=== PATIENT | male | born 1960 | race Caucasian/White ===

== ENCOUNTER 2016-12-07 19:25 | Emergency (ER) | payer MEDICAID ==
[~2016-12-07] VITALS: Ht 175.3 cm; Wt 73.0 kg
[2016-12-07] MEDS ORDERED: SODIUM CHLORIDE 0.9% 1,000ML IVBOLUS ONE (20:00)
[2016-12-07] MEDS ORDERED: LORazepam 1MG TABLET PO ONE (20:00)
[2016-12-07] MEDS ORDERED: SODIUM CHLORIDE FLUSH 10ML SYR IVF ONE (20:00)
[2016-12-07] MEDS ORDERED: ALBUTEROL/IPRATROPIUM 2.5MG/0.5MG, 3 ML NPPB ONE (20:00)
[2016-12-07] MEDS ORDERED: LORazepam 1MG TABLET ONE (20:19)
[2016-12-07] MEDS ORDERED: ALBUTEROL/IPRATROPIUM 2.5MG/0.5MG, 3 ML ONE (20:22)
[2016-12-07 20:31] LABS: BLOOD UREA NITROGEN 6 mg/dL (7-18)
[2016-12-07 20:38] LABS: ACETAMINOPHEN < 2 mcg/mL (10-30); IS PT STATUS REG ER OR PRE ER? YES
[2016-12-07 22:42] VITALS: BP 106/64
== END 2016-12-07 23:10 | disposition home or self-care (01) ==
LOC: ED 23:04
DX: F10.229 Alcohol dependence with intoxication, unspecified (principal); J18.9 Pneumonia, unspecified organism; R09.02 Hypoxemia; J44.9 Chronic obstructive pulmonary disease, unspecified
CPT/HCPCS: 36415; 71010; 80048; 80307; 80329; 81003; 82040; 84484; 85025; 93005; 94640; 96360; 96361; 99285; J7030; J7620; G0480

== ENCOUNTER 2016-12-20 18:31 | Emergency (ER) | payer MEDICAID ==
[~2016-12-20] VITALS: Ht 170.2 cm; Wt 68.8 kg
[2016-12-20 18:33] VITALS: BP 113/76
== END 2016-12-20 19:23 | disposition home or self-care (01) ==
LOC: ED 19:22
DX: Z76.0 Encounter for issue of repeat prescription (principal); J18.9 Pneumonia, unspecified organism; J44.9 Chronic obstructive pulmonary disease, unspecified
CPT/HCPCS: 99283

== ENCOUNTER 2017-06-01 16:40 | Emergency (ER) | payer MEDICAID ==
[~2017-06-01] VITALS: Ht 171.4 cm; Wt 61.8 kg
[2017-06-01 16:55] VITALS: BP 115/72
[2017-06-01] MEDS ORDERED: BACITRACIN ZINC OINT 500U/GM, 0.9 GM ONE (17:32)
== END 2017-06-01 17:40 | disposition home or self-care (01) ==
LOC: ED 17:15
DX: S01.01XD Laceration without foreign body of scalp, subsequent encounter (principal); J44.9 Chronic obstructive pulmonary disease, unspecified
CPT/HCPCS: 99282

== ENCOUNTER 2018-01-07 06:37 | Inpatient (IN) | payer MEDICAID, OTHER ==
[~2018-01-07] VITALS: Ht 177.8 cm; Wt 74.5 kg
[2018-01-07] MEDS ORDERED: SODIUM CHLORIDE 0.9% 1,000 ML IV ONE (06:46)
[2018-01-07] MEDS ORDERED: NALOXONE 1 MG/ML, 2ML ONE (06:51)
[2018-01-07] MEDS ORDERED: NALOXONE 1 MG/ML, 2ML IVPush ONE (07:00)
[2018-01-07] MEDS ORDERED: SODIUM CHLORIDE 0.9% 1,000ML IVBOLUS ONE ×3 (07:00→17:00)
[2018-01-07] MEDS ORDERED: SODIUM CHLORIDE FLUSH 10ML SYR IVF ONE (07:00)
[2018-01-07 07:06] LABS: BASOPHILS # (AUTO) 0.01 x10^3/uL (0-0.1); BASOPHILS % (AUTO) 0 % (0-1); EOSINOPHILS # (AUTO) 0.09 x10^3/uL (0-0.4); EOSINOPHILS % (AUTO) 1 % (1-7); LYMPHOCYTES # (AUTO) 0.46 x10^3/uL (1-3.4); LYMPHOCYTES % (AUTO) 6 % (22-44); MD NO; MEAN CORPUSCULAR HGB CONC 34.2 g/dL (33.2-36.2); MEAN CORPUSCULAR VOLUME 93.6 fL (81-97); MEAN PLATELET VOLUME 8.3 fL (7.4-10.4); MONOCYTES # (AUTO) 0.59 x10^3/uL (0.2-0.8); MONOCYTES % (AUTO) 8 % (2-9); NEUTROPHILS # (AUTO) 6.14 x10^3/uL (1.8-6.8); NEUTROPHILS % (AUTO) 84 % (42-75); PLATELET COUNT 205 x10^3/uL (130-400); RED CELL DISTRIBUTION WIDTH 13.2 % (9.4-14.8)
[2018-01-07 07:19] LABS: ALANINE AMINOTRANSFERASE 95 U/L (12-78); ALBUMIN 3.8 g/dL (3.4-5.0); ANION GAP 1 mmol/L (5-15); CALCIUM 7.7 mg/dL (8.5-10.1); CHLORIDE 104 mmol/L (98-107)
[2018-01-07 07:21] LABS: ALKALINE PHOSPHATASE 78 U/L (45-117); BILIRUBIN,TOTAL 0.1 mg/dL (0.2-1.0); TOTAL PROTEIN 7.5 g/dL (6.4-8.2)
[2018-01-07 07:35] LABS: ACETAMINOPHEN < 2 mcg/mL (10-30)
[2018-01-07] MEDS ORDERED: FILTER 0.22 MICRON IV ONE (10:00)
[2018-01-07] MEDS ORDERED: PHENYTOIN SODIUM 1,000 MG in SODIUM CHLORIDE 0.9% 100 ML IV ONE (10:00)
[2018-01-07] MEDS ORDERED: LORazepam 2 MG/ML, 1ML ONE (10:17)
[2018-01-07] MEDS ORDERED: LORazepam 2 MG/ML, 1ML IVPush ONE (10:30)
[2018-01-07 11:01] VITALS: BP 106/66
[2018-01-07 11:09] LABS: AMPHETAMINE SCREEN, URINE Negative (Negative); BARBITURATE SCREEN, URINE Negative (Negative); BENZODIAZEPINE SCREEN, URINE Negative (Negative); CANNABINOID SCREEN, URINE Negative (Negative); COCAINE SCREEN, URINE Negative (Negative); METHADONE SCREEN, URINE Negative (Negative); OPIATE SCREEN, URINE Negative (Negative)
[2018-01-07] MEDS ORDERED: LORazepam 2 MG/ML, 1ML IVPush PRN (12:00)
[2018-01-07] MEDS ORDERED: D5%-0.45% NACL 1,000 ML IV SCH (12:00)
[2018-01-07 12:24] LABS: O2 FLOW 6 L/min
[2018-01-07 12:41] VITALS: BP 116/71
[2018-01-07] MEDS: ENOXAPARIN 40 MG/0.4 ML SQ SCH (12:42)
[2018-01-07 12:47] LABS: THYROID STIMULATING HORMONE 2.22 mIU/L (0.358-3.740)
[2018-01-07] MEDS ORDERED: PROPOFOL 100 ML IV PRN (14:51)
[2018-01-07] MEDS ORDERED: DEXTROSE 4 GM TAB.CHEW PO PRN (15:00)
[2018-01-07] MEDS ORDERED: DEXTROSE 50%, 50ML SYRINGE IVPush PRN (15:00)
[2018-01-07] MEDS ORDERED: PROPOFOL 10 MG/ML, 100ML IV ONE (15:00)
[2018-01-07] MEDS ORDERED: LIDOCAINE-MPF 1%, 2ML ENDO PRN (15:00)
[2018-01-07] MEDS ORDERED: SUCCINYLCHOLINE 20 MG/ML, 10ML ONE (15:00)
[2018-01-07] MEDS ORDERED: GLUCAGON 1 MG IM PRN (15:00)
[2018-01-07] MEDS ORDERED: PHARMACY MAY ADJ FOR RENAL FX MC SCH (15:00)
[2018-01-07] MEDS ORDERED: BISACODYL 10 MG SUPP PR PRN (15:00)
[2018-01-07] MEDS ORDERED: LACTULOSE 20 GM/30 ML UDC NG PRN (15:00)
[2018-01-07] MEDS ORDERED: SENNA/DOCUSATE TABLET NG PRN (15:00)
[2018-01-07] MEDS ORDERED: SENNOSIDES 8.8 MG/5 ML ORAL SOL NG PRN (15:00)
[2018-01-07 15:28] LABS: GLUCOSE, CSF 105 mg/dL (40-80); TOTAL PROTEIN,CSF 44 mg/dL (15-45)
[2018-01-07 16:40] LABS: MICROSCOPIC NOT IND
[2018-01-07 16:48] LABS: CULTURE INDICATED? NO
[2018-01-07] MEDS: INSULIN LISPRO 100 UNITS/ML, PEN SQ-INSULIN SCH ×2 (17:31→21:00)
[2018-01-07] MEDS: FAMOTIDINE 20 MG/2 ML IV SCH (17:32)
[2018-01-07] MEDS: PIPERACILLIN/TAZO/PMX 3.375GM 50 ML IV SCH ×2 (17:32→23:10)
[2018-01-07] MEDS: ALBUTEROL/IPRATROPIUM 2.5MG/0.5MG, 3 ML INLINE SCH ×2 (18:45→22:44)
[2018-01-07] MEDS: SODIUM CHLORIDE FLUSH 10ML SYR IVF SCH (21:00)
[2018-01-07] MEDS: SODIUM CHLORIDE 0.9% 1,000 ML IV SCH (21:18)
[2018-01-07] MEDS: PROPOFOL 100 ML IV PRN (22:04)
[2018-01-07] MEDS: FENTANYL PF 100 MCG/2ML IVPush PRN (23:09)
[2018-01-08] MEDS: ALBUTEROL/IPRATROPIUM 2.5MG/0.5MG, 3 ML INLINE SCH ×3 (02:38→09:00)
[2018-01-08] MEDS: FAMOTIDINE 20 MG/2 ML IV SCH ×2 (03:16→14:07)
[2018-01-08] MEDS: FENTANYL PF 100 MCG/2ML IVPush PRN (03:16)
[2018-01-08] MEDS: PROPOFOL 100 ML IV PRN ×2 (03:46→08:29)
[2018-01-08 04:39] LABS: ANION GAP 9 mmol/L (5-15); CALCIUM 8.1 mg/dL (8.5-10.1); CHLORIDE 106 mmol/L (98-107); CREATININE 0.76 mg/dL (0.7-1.3)
[2018-01-08 04:43] LABS: ALANINE AMINOTRANSFERASE 70 U/L (12-78); ALKALINE PHOSPHATASE 51 U/L (45-117); BILIRUBIN,TOTAL 0.6 mg/dL (0.2-1.0); TOTAL PROTEIN 6.1 g/dL (6.4-8.2)
[2018-01-08 05:00] VITALS: BP 110/68
[2018-01-08] MEDS: SODIUM CHLORIDE 0.9% 1,000 ML IV SCH ×3 (05:36→17:58)
[2018-01-08 05:43] LABS: BASOPHILS # (AUTO) 0.02 x10^3/uL (0-0.1); BASOPHILS % (AUTO) 0 % (0-1); EOSINOPHILS # (AUTO) 0.01 x10^3/uL (0-0.4); EOSINOPHILS % (AUTO) 0 % (1-7); LYMPHOCYTES # (AUTO) 1.47 x10^3/uL (1-3.4); LYMPHOCYTES % (AUTO) 14 % (22-44); MD SCAN; MEAN CORPUSCULAR HEMOGLOBIN 31.2 pg (27.5-34.5); MEAN CORPUSCULAR HGB CONC 33.7 g/dL (33.2-36.2); MEAN CORPUSCULAR VOLUME 92.8 fL (81-97); MEAN PLATELET VOLUME 9.1 fL (7.4-10.4); MONOCYTES # (AUTO) 1.07 x10^3/uL (0.2-0.8); MONOCYTES % (AUTO) 10 % (2-9); NEUTROPHILS # (AUTO) 8.03 x10^3/uL (1.8-6.8); NEUTROPHILS % (AUTO) 76 % (42-75); PLATELET COUNT 158 x10^3/uL (130-400); RED BLOOD COUNT 3.85 x10^6/uL (4.38-5.82); RED CELL DISTRIBUTION WIDTH 13.3 % (9.4-14.8)
[2018-01-08] MEDS: INSULIN LISPRO 100 UNITS/ML, PEN SQ-INSULIN SCH ×4 (07:00→21:00)
[2018-01-08] MEDS: PIPERACILLIN/TAZO/PMX 3.375GM 50 ML IV SCH ×3 (07:05→18:00)
[2018-01-08] MEDS ORDERED: MAGNESIUM SULFATE PMX 4GM/100M 100 ML IV ONE (08:00)
[2018-01-08] MEDS: CYANOCOBALAMIN 1,000 MCG TABLET PO SCH (10:49)
[2018-01-08] MEDS: SODIUM CHLORIDE FLUSH 10ML SYR IVF SCH ×2 (10:50→21:20)
[2018-01-08] MEDS ORDERED: LEVETIRACETAM 100 MG/ML, 5ML IV SCH (12:00)
[2018-01-08] MEDS: ENOXAPARIN 40 MG/0.4 ML SQ SCH (12:24)
[2018-01-08] MEDS: LEVETIRACETAM 750 MG in SODIUM CHLORIDE 0.9% 100 ML IV SCH (12:24)
[2018-01-08] MEDS ORDERED: PROPOFOL 100 ML IV PRN (14:51)
[2018-01-09] MEDS: LEVETIRACETAM 750 MG in SODIUM CHLORIDE 0.9% 100 ML IV SCH (00:19)
[2018-01-09] MEDS: PIPERACILLIN/TAZO/PMX 3.375GM 50 ML IV SCH ×2 (01:18→07:51)
[2018-01-09] MEDS: SODIUM CHLORIDE 0.9% 1,000 ML IV SCH (03:20)
[2018-01-09] MEDS: FAMOTIDINE 20 MG/2 ML IV SCH (03:20)
[2018-01-09 04:39] LABS: BASOPHILS # (AUTO) 0.03 x10^3/uL (0-0.1); BASOPHILS % (AUTO) 1 % (0-1); EOSINOPHILS # (AUTO) 0.07 x10^3/uL (0-0.4); EOSINOPHILS % (AUTO) 1 % (1-7); LYMPHOCYTES # (AUTO) 1.67 x10^3/uL (1-3.4); LYMPHOCYTES % (AUTO) 24 % (22-44); MD NO; MEAN CORPUSCULAR HEMOGLOBIN 31.9 pg (27.5-34.5); MEAN CORPUSCULAR HGB CONC 34.1 g/dL (33.2-36.2); MEAN CORPUSCULAR VOLUME 93.6 fL (81-97); MEAN PLATELET VOLUME 8.8 fL (7.4-10.4); MONOCYTES # (AUTO) 0.87 x10^3/uL (0.2-0.8); MONOCYTES % (AUTO) 13 % (2-9); NEUTROPHILS # (AUTO) 4.27 x10^3/uL (1.8-6.8); NEUTROPHILS % (AUTO) 62 % (42-75); PLATELET COUNT 158 x10^3/uL (130-400); RED BLOOD COUNT 3.78 x10^6/uL (4.38-5.82); RED CELL DISTRIBUTION WIDTH 13.2 % (9.4-14.8)
[2018-01-09 04:49] LABS: ANION GAP 6 mmol/L (5-15); CALCIUM 7.8 mg/dL (8.5-10.1); CHLORIDE 106 mmol/L (98-107); CREATININE 0.46 mg/dL (0.7-1.3)
[2018-01-09 05:00] VITALS: BP 110/65
[2018-01-09] MEDS: INSULIN LISPRO 100 UNITS/ML, PEN SQ-INSULIN SCH (07:00)
[2018-01-09] MEDS: SODIUM CHLORIDE FLUSH 10ML SYR IVF SCH ×2 (08:08→22:00)
[2018-01-09] MEDS: CYANOCOBALAMIN 1,000 MCG TABLET PO SCH (08:08)
[2018-01-09] MEDS: DOXYCYCLINE 100 MG in DEXTROSE 5% 250 ML IV SCH ×2 (09:17→22:00)
[2018-01-09] MEDS ORDERED: CEFTRIAXONE PMX 2GM/50ML 50 ML IVPB SCH (10:30)
[2018-01-09] MEDS: ENOXAPARIN 40 MG/0.4 ML SQ SCH (11:20)
[2018-01-09] MEDS ORDERED: GADOBUTROL 7.5 MMOL/7.5 ML PFS ONE (12:45)
[2018-01-09 14:06] VITALS: BP 119/69
[2018-01-09 21:30] VITALS: BP 127/78
[2018-01-09] MEDS: LEVETIRACETAM 500 MG TABLET PO SCH (22:00)
[2018-01-10 04:56] LABS: BASOPHILS # (AUTO) 0.05 x10^3/uL (0-0.1); BASOPHILS % (AUTO) 1 % (0-1); EOSINOPHILS % (AUTO) 2 % (1-7); LYMPHOCYTES # (AUTO) 1.68 x10^3/uL (1-3.4); LYMPHOCYTES % (AUTO) 36 % (22-44); MD NO; MEAN CORPUSCULAR HEMOGLOBIN 32.1 pg (27.5-34.5); MEAN CORPUSCULAR HGB CONC 34.5 g/dL (33.2-36.2); MEAN CORPUSCULAR VOLUME 93.1 fL (81-97); MEAN PLATELET VOLUME 8.5 fL (7.4-10.4); MONOCYTES # (AUTO) 0.76 x10^3/uL (0.2-0.8); MONOCYTES % (AUTO) 16 % (2-9); NEUTROPHILS # (AUTO) 2.04 x10^3/uL (1.8-6.8); NEUTROPHILS % (AUTO) 44 % (42-75); PLATELET COUNT 195 x10^3/uL (130-400); RED BLOOD COUNT 4.22 x10^6/uL (4.38-5.82); RED CELL DISTRIBUTION WIDTH 13.1 % (9.4-14.8)
[2018-01-10 05:10] LABS: ANION GAP 8 mmol/L (5-15); CALCIUM 8.7 mg/dL (8.5-10.1); CHLORIDE 103 mmol/L (98-107); CREATININE 0.44 mg/dL (0.7-1.3)
[2018-01-10 05:33] VITALS: BP 109/73
[2018-01-10 07:13] VITALS: BP 117/74
[2018-01-10] MEDS: SODIUM CHLORIDE FLUSH 10ML SYR IVF SCH ×2 (09:19→21:28)
[2018-01-10] MEDS: DOXYCYCLINE 100 MG in DEXTROSE 5% 250 ML IV SCH ×2 (09:19→21:29)
[2018-01-10] MEDS: CYANOCOBALAMIN 1,000 MCG TABLET PO SCH (09:19)
[2018-01-10] MEDS: LEVETIRACETAM 500 MG TABLET PO SCH ×2 (09:19→21:28)
[2018-01-10] MEDS: ASPIRIN 81 MG TABLET EC PO SCH (09:19)
[2018-01-10 10:00] VITALS: BP 122/77
[2018-01-10] MEDS ORDERED: OMNIPAQUE 350 MG/ML, 150 ML BOTTLE ONE (10:07)
[2018-01-10] MEDS: ENOXAPARIN 40 MG/0.4 ML SQ SCH (12:21)
[2018-01-10 13:40] VITALS: BP 115/71
[2018-01-10 15:49] LABS: LDL/HDL RATIO 0.8 (0.5-3.0)
[2018-01-10 19:40] VITALS: BP 114/72
[2018-01-10] MEDS ORDERED: ATORVASTATIN 40 MG TABLET PO SCH (21:00)
[2018-01-11 01:49] VITALS: BP 133/76
[2018-01-11 05:25] LABS: BASOPHILS # (AUTO) 0.01 x10^3/uL (0-0.1); BASOPHILS % (AUTO) 0 % (0-1); EOSINOPHILS # (AUTO) 0.13 x10^3/uL (0-0.4); EOSINOPHILS % (AUTO) 3 % (1-7); LYMPHOCYTES # (AUTO) 1.78 x10^3/uL (1-3.4); LYMPHOCYTES % (AUTO) 39 % (22-44); MD NO; MEAN CORPUSCULAR HEMOGLOBIN 32.4 pg (27.5-34.5); MEAN CORPUSCULAR HGB CONC 34.5 g/dL (33.2-36.2); MEAN CORPUSCULAR VOLUME 93.8 fL (81-97); MEAN PLATELET VOLUME 8.5 fL (7.4-10.4); MONOCYTES # (AUTO) 0.76 x10^3/uL (0.2-0.8); MONOCYTES % (AUTO) 17 % (2-9); NEUTROPHILS # (AUTO) 1.86 x10^3/uL (1.8-6.8); NEUTROPHILS % (AUTO) 41 % (42-75); PLATELET COUNT 203 x10^3/uL (130-400); RED BLOOD COUNT 4.25 x10^6/uL (4.38-5.82); RED CELL DISTRIBUTION WIDTH 13.4 % (9.4-14.8)
[2018-01-11] MEDS: ASPIRIN 81 MG TABLET EC PO SCH (05:25)
[2018-01-11 06:47] LABS: ALANINE AMINOTRANSFERASE 76 U/L (12-78); ALKALINE PHOSPHATASE 56 U/L (45-117); ANION GAP 10 mmol/L (5-15); BILIRUBIN,TOTAL 0.4 mg/dL (0.2-1.0); CALCIUM 8.7 mg/dL (8.5-10.1); CHLORIDE 104 mmol/L (98-107); CREATININE 0.55 mg/dL (0.7-1.3); TOTAL PROTEIN 6.6 g/dL (6.4-8.2)
[2018-01-11 07:25] VITALS: BP 125/72
[2018-01-11] MEDS: LEVETIRACETAM 500 MG TABLET PO SCH (08:45)
[2018-01-11] MEDS: CYANOCOBALAMIN 1,000 MCG TABLET PO SCH (08:45)
[2018-01-11] MEDS: SODIUM CHLORIDE FLUSH 10ML SYR IVF SCH (08:45)
[2018-01-11] MEDS: DOXYCYCLINE 100 MG in DEXTROSE 5% 250 ML IV SCH (09:37)
[2018-01-11] MEDS: ENOXAPARIN 40 MG/0.4 ML SQ SCH (12:41)
[2018-01-11 13:39] VITALS: BP 105/64
[2018-01-11] MEDS ORDERED: MAGNESIUM SULFATE PMX 2GM/50ML 50 ML IV ONE (15:00)
[2018-01-11] MEDS ORDERED: ASPI-621 PO (15:03)
[2018-01-11] MEDS ORDERED: DOXY100T PO (15:03)
[2018-01-11] MEDS ORDERED: CYAN10005 PO (15:03)
[2018-01-11] MEDS ORDERED: ATOR40TA78 PO (15:03)
[2018-01-11] MEDS ORDERED: LEVE500T53 PO (15:11)
== END 2018-01-11 18:25 | disposition home or self-care (01) | DRG 166 ==
LOC: ED 08:02 → EDIP 08:42 → 4WST 10:45 → CCU 14:03 → 3NE 01-09 12:59 → 4EST 01-10 09:58
PROVIDERS: ADMIT Hospitalist; ATTEND Hospitalist
PROC: 0T9B70Z Drainage of Bladder with Drainage Device, Via Natural or Artificial Opening (ICD-10-PCS; principal; 2018-01-07)
PROC: 0B9F8ZX Drainage of Right Lower Lung Lobe, Via Natural or Artificial Opening Endoscopic, Diagnostic (ICD-10-PCS; 2018-01-07)
PROC: 5A1945Z Respiratory Ventilation, 24-96 Consecutive Hours (ICD-10-PCS; 2018-01-07)
PROC: 009U3ZX Drainage of Spinal Canal, Percutaneous Approach, Diagnostic (ICD-10-PCS; 2018-01-07)
PROC: 0BH17EZ Insertion of Endotracheal Airway into Trachea, Via Natural or Artificial Opening (ICD-10-PCS; 2018-01-07)
DX: J15.4 Pneumonia due to other streptococci (principal); J96.00 Acute respiratory failure, unspecified whether with hypoxia or hypercapnia; I63.9 Cerebral infarction, unspecified; Z99.11 Dependence on respirator [ventilator] status; E72.20 Disorder of urea cycle metabolism, unspecified; E83.42 Hypomagnesemia; I08.1 Rheumatic disorders of both mitral and tricuspid valves; E87.2 Acidosis; E87.1 Hypo-osmolality and hyponatremia; J44.0 Chronic obstructive pulmonary disease with (acute) lower respiratory infection; G40.201 Localization-related (focal) (partial) symptomatic epilepsy and epileptic syndromes with complex partial seizures, not intractable, with status epilepticus; I50.9 Heart failure, unspecified; G93.89 Other specified disorders of brain; B19.20 Unspecified viral hepatitis C without hepatic coma; E53.8 Deficiency of other specified B group vitamins; F17.200 Nicotine dependence, unspecified, uncomplicated; R32 Unspecified urinary incontinence; S01.512A Laceration without foreign body of oral cavity, initial encounter; X58.XXXA Exposure to other specified factors, initial encounter; R40.2430 Glasgow coma scale score 3-8, unspecified time; Y93.89 Activity, other specified; Y92.89 Other specified places as the place of occurrence of the external cause; Z79.82 Long term (current) use of aspirin; Z79.899 Other long term (current) drug therapy; Z88.1 Allergy status to other antibiotic agents
CPT/HCPCS: 0042T; 31624; 36415; 36600; 70450; 70498; 70553; 71045; 80048; 80053; 80061; 80074; 80177; 80307; 80329; 81003; 82140; 82607; 82746; 82803; 82945; 82962; 83735; 84100; 84157; 84443; 84478; 85025; 86592; 87070; 87081; 87102; 87116; 87184; 87205; 87206; 87521; 87529; 87802; 87806; 87899; 88108; 88112; 88312; 89051; 93005; 93306; 93880; 94002; 94003; 94640; 95816; 95819; 96361; 96374; 96375; A9585; J1165; J1650; J1953; J2543; J2704; J3010; J7060; J7620; Q9967; G0475; G0480; J0330; J1815; J2060; J2310; J3475; J7030; S0028

== ENCOUNTER 2019-03-27 15:05 | Emergency (ER) | payer MEDICAID, OTHER ==
[~2019-03-27] VITALS: Ht 172.7 cm; Wt 65.0 kg
[2019-03-27 16:15] VITALS: BP 116/84
== END 2019-03-27 17:15 | disposition home or self-care (01) ==
LOC: ED 17:09
DX: G40.419 Other generalized epilepsy and epileptic syndromes, intractable, without status epilepticus (principal); F10.121 Alcohol abuse with intoxication delirium; Y90.0 Blood alcohol level of less than 20 mg/100 ml; J44.9 Chronic obstructive pulmonary disease, unspecified; F31.9 Bipolar disorder, unspecified
CPT/HCPCS: 36415; 80048; 80307; 82040; 83735; 85025; 99283

== ENCOUNTER 2019-04-06 22:50 | Emergency (ER) | payer MEDICAID, OTHER ==
[~2019-04-06] VITALS: Ht 180.3 cm; Wt 80.0 kg
[~2019-04-06 22:50] MED LIST: ASPI81TA45 PO; ATOR40TA78 PO; CYAN-27 PO; DOXY100T PO; LEVE500T53 PO
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
--- NOTE | 2019-04-07 01:00 | NUR ---
Pt resting on gureny, respirations even and unlabored, placed on 2 liters via NC for apnea while asleep, all other vitals stable. Pending results.
--- NOTE | 2019-04-07 02:15 | NUR ---
Pt resting on gurney, respirations even and unlabored, vitals stable, medically cleared pending ambulation/ sobriety.
[2019-04-07 04:39] VITALS: BP 116/66
--- NOTE | 2019-04-07 04:55 | NUR ---
Pt stable for discahrge to home, vitals stable, speech is clear, follows commands, ambulates w/ steady gait. Pt provided education, verbalizes understanding, ambulates w/ personal belongings to front lobby, taxi voucher provided.
== END 2019-04-07 04:57 | disposition home or self-care (01) ==
LOC: MERGE 23:46 → ED 23:46
DX: S06.0X9A Concussion with loss of consciousness of unspecified duration, initial encounter (principal); S00.81XA Abrasion of other part of head, initial encounter; S00.31XA Abrasion of nose, initial encounter; J20.8 Acute bronchitis due to other specified organisms; F10.220 Alcohol dependence with intoxication, uncomplicated; Y90.9 Presence of alcohol in blood, level not specified; W01.0XXA Fall on same level from slipping, tripping and stumbling without subsequent striking against object, initial encounter; Y93.89 Activity, other specified; Y92.89 Other specified places as the place of occurrence of the external cause; Y99.8 Other external cause status
CPT/HCPCS: 70450; 70486; 71045; 72125; 99284

== ENCOUNTER 2019-06-14 13:54 | Emergency (ER) | payer MEDICAID, OTHER ==
[~2019-06-14] VITALS: Ht 170.2 cm; Wt 70.0 kg
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
[2019-06-14 14:40] LABS: BASOPHILS # (AUTO) 0.04 x10^3/uL (0-0.1); BASOPHILS % (AUTO) 1 % (0-1); EOSINOPHILS # (AUTO) 0.02 x10^3/uL (0-0.4); EOSINOPHILS % (AUTO) 1 % (1-7); LYMPHOCYTES % (AUTO) 36 % (22-44); MD NO; MEAN CORPUSCULAR HEMOGLOBIN 32.8 pg (27.5-34.5); MEAN CORPUSCULAR VOLUME 99.4 fL (81-97); MEAN PLATELET VOLUME 7.8 fL (7.4-10.4); MONOCYTES # (AUTO) 0.44 x10^3/uL (0.2-0.8); MONOCYTES % (AUTO) 14 % (2-9); NEUTROPHILS # (AUTO) 1.43 x10^3/uL (1.8-6.8); NEUTROPHILS % (AUTO) 47 % (42-75); PLATELET COUNT 204 x10^3/uL (130-400); RED BLOOD COUNT 4.85 x10^6/uL (4.38-5.82); RED CELL DISTRIBUTION WIDTH 14.8 % (9.4-14.8)
[2019-06-14 14:48] LABS: ALBUMIN 2.9 g/dL (3.4-5.0); ANION GAP 5 mmol/L (5-15); CHLORIDE 104 mmol/L (98-107); CREATININE 0.51 mg/dL (0.7-1.3)
[2019-06-14 16:01] VITALS: BP 106/76
== END 2019-06-14 16:06 | disposition home or self-care (01) ==
LOC: ED 16:00
DX: J20.8 Acute bronchitis due to other specified organisms (principal)
CPT/HCPCS: 36415; 71045; 80048; 82040; 85025; 93005; 99284

== ENCOUNTER 2019-06-26 11:18 | Emergency (ER) | payer MEDICAID ==
[~2019-06-26] VITALS: Ht 177.8 cm; Wt 88.0 kg
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
[2019-06-26] MEDS ORDERED: NEOSPORIN OINT. PKT 1 PACKET ONE (11:50)
[2019-06-26] MEDS ORDERED: THIAMINE 100 MG/ML, 2ML IM ONE (12:00)
--- NOTE | 2019-06-26 12:05 | NUR ---
HR dropped to 45 while sleeping. MD aware. No further orders at this time.
[2019-06-26] MEDS ORDERED: THIAMINE 100 MG/ML, 2ML ONE (12:44)
--- NOTE | 2019-06-26 12:57 | NUR ---
Thiamine admin. Repositioned for comfort. No other needs.
--- NOTE | 2019-06-26 14:12 | NUR ---
Resting ingurney. RR = 16. Arousable to touch.
--- NOTE | 2019-06-26 14:21 | NUR ---
TASK RN: PT RESTING IN GURNEY W/ EYES CLOSED. EVEN/REGULAR RESPIRATIONS NOTED. SPO2 100% ON 3L BY NC. O2 REDUCED TO RA FOR RA TRIAL. PT EASILY ARROUSABLE AND MOVING ALL EXTREMITIES INDEPENDENTLY.
--- NOTE | 2019-06-26 15:32 | NUR ---
Resting in [facility]. VSS.
[2019-06-26 16:37] VITALS: BP 110/68
--- NOTE | 2019-06-26 16:46 | NUR ---
Ambulatory with a steady gait. Escorted out by security.
== END 2019-06-26 16:47 ==
LOC: ED 16:10
DX: S00.01XA Abrasion of scalp, initial encounter (principal); S00.31XA Abrasion of nose, initial encounter; F31.9 Bipolar disorder, unspecified; J44.9 Chronic obstructive pulmonary disease, unspecified; F10.129 Alcohol abuse with intoxication, unspecified; W19.XXXA Unspecified fall, initial encounter; Y93.89 Activity, other specified; Y92.413 State road as the place of occurrence of the external cause; Y99.8 Other external cause status; Y90.9 Presence of alcohol in blood, level not specified
CPT/HCPCS: 70450; 72125; 96372; 99284; J3411

== ENCOUNTER 2019-07-11 00:13 | Emergency (ER) | payer MEDICAID ==
[~2019-07-11] VITALS: Ht 172.7 cm; Wt 70.0 kg
[2019-07-11 00:37] VITALS: BP 97/66
--- NOTE | 2019-07-11 00:41 | NUR ---
PT IN HOSPITAL GOWN, LABS DRAWN. PT ON VITALS MONITORS.
[2019-07-11 00:48] LABS: BASOPHILS # (AUTO) 0.04 x10^3/uL (0-0.1); BASOPHILS % (AUTO) 1 % (0-1); EOSINOPHILS % (AUTO) 2 % (1-7); LYMPHOCYTES # (AUTO) 1.64 x10^3/uL (1-3.4); LYMPHOCYTES % (AUTO) 39 % (22-44); MD NO; MEAN CORPUSCULAR HEMOGLOBIN 31.9 pg (27.5-34.5); MEAN CORPUSCULAR HGB CONC 32.8 g/dL (33.2-36.2); MEAN CORPUSCULAR VOLUME 97.3 fL (81-97); MEAN PLATELET VOLUME 7.3 fL (7.4-10.4); MONOCYTES # (AUTO) 0.55 x10^3/uL (0.2-0.8); MONOCYTES % (AUTO) 13 % (2-9); NEUTROPHILS # (AUTO) 1.92 x10^3/uL (1.8-6.8); NEUTROPHILS % (AUTO) 45 % (42-75); PLATELET COUNT 306 x10^3/uL (130-400); RED BLOOD COUNT 5.19 x10^6/uL (4.38-5.82); RED CELL DISTRIBUTION WIDTH 14.4 % (9.4-14.8)
[2019-07-11 00:57] LABS: ALBUMIN 3.3 g/dL (3.4-5.0); ANION GAP 4 mmol/L (5-15); CALCIUM 8.7 mg/dL (8.5-10.1); CHLORIDE 107 mmol/L (98-107); CREATININE 0.62 mg/dL (0.7-1.3)
--- NOTE | 2019-07-11 00:57 | NUR ---
IV STARTED, PT DISROBED. GOING TO RAD AT THIS TIME.
[2019-07-11] MEDS ORDERED: SODIUM CHLORIDE FLUSH 10ML SYR IVF ONE (01:00)
--- NOTE | 2019-07-11 01:14 | NUR ---
Rn returned from break. Patient still in imaging. Awaiting results of computed tomography scan.
[2019-07-11] MEDS ORDERED: OMNIPAQUE 350 MG/ML, 100ML BOTTLE ONE (01:17)
--- NOTE | 2019-07-11 01:28 | NUR ---
RN returned to bedside as patient was yelling into hallway. Patient instructed to not yell. RN returned shortly after to find patient urinating into sink.
== END 2019-07-11 03:15 | disposition home or self-care (01) ==
LOC: ED 03:09
DX: G89.11 Acute pain due to trauma (principal); R07.81 Pleurodynia; F10.229 Alcohol dependence with intoxication, unspecified; J44.9 Chronic obstructive pulmonary disease, unspecified; W01.0XXA Fall on same level from slipping, tripping and stumbling without subsequent striking against object, initial encounter; Y93.89 Activity, other specified; Y92.410 Unspecified street and highway as the place of occurrence of the external cause; Y99.0 Civilian activity done for income or pay
CPT/HCPCS: 36415; 71046; 74177; 80048; 80307; 82040; 83605; 85025; 99284; Q9967